=== PATIENT | male | born 1990 | race Asian ===

== ENCOUNTER 2023-05-11 08:41 | Emergency (ER) | payer OTHER ==
[2023-05-11] MEDS: LACTATED RINGERS SOLUTION 1000 ML INFUS.BAG IV SCH ×2 (09:05→09:46)
[2023-05-11 09:27] VITALS: BMI 25.8
[2023-05-11 09:29] LABS: HEMATOCRIT 43.5 % (35.4-49); HEMOGLOBIN 14.3 G/dL (11.7-16.9); MCH 30.2 pg (25.7-33.7); MCHC 32.9 g/dl (32.0-35.9); MEAN CELL VOLUME 91.7 fl (80-96); MEAN PLT VOLUME 8.8 fl (7.5-11.1); PLATELET COUNT 320.1 10^3/uL (134-434); RBC 4.74 10^6/uL (4.00-5.60); WHITE BLOOD COUNT 18.3 10^3/uL (4.0-10.8)
[2023-05-11 09:35] LABS: INR 0.93 (0.83-1.09); PROTHROMBIN TIME (PATIENT) 10.8 SEC (9.7-13.0)
[2023-05-11 09:37] LABS: ACTIVATED PTT 31.1 SECONDS (25.2-36.5)
[2023-05-11 09:38] LABS: ALBUMIN 5.4 g/dl (3.4-5.0); BLOOD UREA NITROGEN 16.8 mg/dl (7-18); CALCIUM 9.8 mg/dl (8.5-10.1); CREATININE 1.6 mg/dl (0.6-1.3); MAGNESIUM 3.1 mg/dL (1.8-2.4); PHOSPHOROUS 8.65 (2.5-4.9); POTASSIUM 4.8 mmol/L (3.5-5.1); SGOT/AST 54.2 U/L (15-37); SGPT/ALT 38.4 U/L (7-52); TOT PROT 8.2 g/dl (6.4-8.2)
[2023-05-11 10:05] LABS: VENOUS BASE EXCESS -16.4 mmol/L (-2-2); VENOUS O2 SATURATION 45.1 % (70-80)
[2023-05-11 10:15] LABS: VENOUS PH 6.96 (7.310-7.410)
[2023-05-11 10:16] LABS: VENOUS PCO2 76.5 mmHg (38-52)
[2023-05-11 11:34] LABS: BILIRUBIN,TOTAL 0.2 mg/dL (0.2-1)
[2023-05-11 12:04] LABS: EPITHELIAL CELLS FEW /hpf
[2023-05-11] MEDS ORDERED: ONDANSETRON 4 MG/2 ML VIAL IM ONE (12:18)
[2023-05-11] MEDS ORDERED: LACTATED RINGERS SOLUTION 1000 ML INFUS.BAG IV ONE ×2 (12:18→15:24)
[2023-05-11] MEDS ORDERED: FAMOTIDINE 20 MG/50 ML IVPB 20 MG/50 ML MG IVPB ONE ×2 (12:18→12:39)
[2023-05-11] MEDS ORDERED: ONDANSETRON 4 MG/2 ML VIAL ONE (12:39)
[2023-05-11 12:56] LABS: METHADONE, UR NEGATIVE (NEGATIVE); OPIATES, URI NEGATIVE (NEGATIVE); PHENCYCLIDINE,URINE NEGATIVE (NEGATIVE); URINE AMPHETAMINES NEGATIVE (NEGATIVE); URINE BARBITURATES NEGATIVE (NEGATIVE)
[2023-05-11 12:56] LABS: HEMOGLOBIN 12.5 G/dL (11.7-16.9); MCH 30.5 pg (25.7-33.7); MCHC 33.9 g/dl (32.0-35.9); MEAN PLT VOLUME 8.9 fl (7.5-11.1); PLATELET COUNT 269.4 10^3/uL (134-434); RBC 4.11 10^6/uL (4.00-5.60); RDW 13.8 % (11.9-15.9); WHITE BLOOD COUNT 12.5 10^3/uL (4.0-10.8)
[2023-05-11 12:58] LABS: COCAINE, UR POSITIVE (NEGATIVE); URINE BENZODIAZEPINES NEGATIVE (NEGATIVE)
[2023-05-11 13:16] LABS: ALBUMIN 4.4 g/dl (3.4-5.0); BLOOD UREA NITROGEN 16.3 mg/dl (7-18); CALCIUM 8.4 mg/dl (8.5-10.1); MAGNESIUM 1.8 mg/dL (1.8-2.4); PHOSPHOROUS 4.41 (2.5-4.9); POTASSIUM 4.7 mmol/L (3.5-5.1); SGOT/AST 49.9 U/L (15-37); SGPT/ALT 40.6 U/L (7-52); TOT PROT 6.5 g/dl (6.4-8.2)
[2023-05-11 13:29] LABS: BILIRUBIN,TOTAL 0.2 mg/dL (0.2-1)
[2023-05-11 15:10] LABS: VENOUS BASE EXCESS -10.3 mmol/L (-2-2); VENOUS O2 SATURATION 47.1 % (70-80); VENOUS PCO2 38.4 mmHg (38-52); VENOUS PH 7.245 (7.310-7.410)
[2023-05-11 15:16] VITALS: RESP 18
[2023-05-11 15:18] VITALS: BP 121/79; PULSE 94; TEMP 98.1
[2023-05-11] MEDS ORDERED: SODIUM CHLORIDE 0.9% 500 ML INFUS.BAG IV ONE (15:26)
== END 2023-05-11 17:03 | disposition home or self-care (01) ==
LOC: FER 08:41
PROC: 3E033GC Introduction of Other Therapeutic Substance into Peripheral Vein, Percutaneous Approach (ICD-10-PCS; principal; 2023-05-11)
PROC: 3E023GC Introduction of Other Therapeutic Substance into Muscle, Percutaneous Approach (ICD-10-PCS; 2023-05-11)
PROC: 3E0337Z Introduction of Electrolytic and Water Balance Substance into Peripheral Vein, Percutaneous Approach (ICD-10-PCS; 2023-05-11)
DX: F10.129 Alcohol abuse with intoxication, unspecified (principal); F14.10 Cocaine abuse, uncomplicated; Y90.6 Blood alcohol level of 120-199 mg/100 ml; Z20.822 Contact with and (suspected) exposure to COVID-19
CPT/HCPCS: 0241U-QW; 36415; 71045-TC-FY; 80053; 80307; 81003; 81015; 82803; 83735; 84100; 85027; 85610; 85730; 93005; 99291; 99292